=== PATIENT | male | born 1970 | race Caucasian/White ===

== ENCOUNTER 2020-05-10 09:11 | Outpatient (REF) | payer SELFPAY | END 2020-05-10 09:12 | disposition home or self-care (01) | LOC: HO.BBR 09:11 | PROVIDERS: PCP Nurse Practitioner Family; Visit Provider Internal Medicine Medical Oncology | DX: Z13.89 Encounter for screening for other disorder (principal) ==

== ENCOUNTER 2020-05-10 09:42 | Outpatient (REF) | payer SELFPAY ==
[2020-05-10 10:37] LABS: Cholesterol 188 mg/dL
[2020-05-10 12:56] LABS: SARS COV2 IgG Negative (Negative)
== END 2020-05-10 09:43 | disposition home or self-care (01) ==
LOC: HO.LNC 09:42
PROVIDERS: Visit Provider Pathology Anatomic Pathology & Clinical Pathology
DX: Z20.828 Contact with and (suspected) exposure to other viral communicable diseases (principal); Z13.220 Encounter for screening for lipoid disorders
CPT/HCPCS: 82465; 86769

== ENCOUNTER 2022-03-12 10:02 | Outpatient (REF) | payer OTHER, SELFPAY | END 2022-03-12 10:03 | disposition home or self-care (01) | LOC: HO.BBR 10:02 | PROVIDERS: Visit Provider Internal Medicine Hematology & Oncology | DX: Z13.89 Encounter for screening for other disorder (principal) ==

== ENCOUNTER 2022-06-19 08:06 | Outpatient (REF) | payer OTHER, SELFPAY | END 2022-06-19 08:07 | disposition home or self-care (01) | LOC: HO.BBR 08:06 | PROVIDERS: Visit Provider Internal Medicine Hematology & Oncology | DX: Z13.89 Encounter for screening for other disorder (principal) ==

== ENCOUNTER 2022-09-18 08:07 | Outpatient (REF) | payer OTHER, SELFPAY | END 2022-09-18 08:08 | disposition home or self-care (01) | LOC: HO.BBR 08:07 | PROVIDERS: Visit Provider Internal Medicine Hematology & Oncology | DX: Z13.89 Encounter for screening for other disorder (principal) ==

== ENCOUNTER 2022-12-29 08:08 | Outpatient (REF) | payer OTHER, SELFPAY | END 2022-12-29 08:09 | disposition home or self-care (01) | LOC: HO.BBR 08:08 | PROVIDERS: Visit Provider Internal Medicine Hematology & Oncology | DX: Z13.89 Encounter for screening for other disorder (principal) ==

== ENCOUNTER 2023-04-09 08:04 | Outpatient (REF) | payer OTHER, SELFPAY | END 2023-04-09 08:05 | disposition home or self-care (01) | LOC: HO.BBR 08:04 | PROVIDERS: PCP Nurse Practitioner Family; Visit Provider Internal Medicine Medical Oncology | DX: Z13.89 Encounter for screening for other disorder (principal) ==

== ENCOUNTER 2023-08-13 08:06 | Outpatient (REF) | payer OTHER, SELFPAY | END 2023-08-13 08:07 | disposition home or self-care (01) | LOC: HO.BBR 08:06 | PROVIDERS: PCP Nurse Practitioner Family; Visit Provider Internal Medicine Medical Oncology | DX: Z13.89 Encounter for screening for other disorder (principal) ==

== ENCOUNTER 2023-12-24 08:04 | Outpatient (REF) | payer OTHER, SELFPAY | END 2023-12-24 08:05 | disposition home or self-care (01) | LOC: HO.BBR 08:04 | PROVIDERS: PCP Nurse Practitioner Family; Visit Provider Internal Medicine Medical Oncology | DX: Z13.89 Encounter for screening for other disorder (principal) ==

== ENCOUNTER 2024-04-17 09:51 | Outpatient (REF) | payer OTHER, SELFPAY | END 2024-04-17 09:52 | disposition home or self-care (01) | LOC: HO.BBR 09:51 | PROVIDERS: PCP Nurse Practitioner Family; Visit Provider Internal Medicine Medical Oncology | DX: Z13.89 Encounter for screening for other disorder (principal) ==